=== PATIENT | male | born 1935 | race Hispanic/Latino ===

== ENCOUNTER → 2019-05-12 | Outpatient (CLI) | payer OTHER | END | disposition home or self-care (01) | LOC: SHCH 12:56 | PROVIDERS: ATTEND Internal Medicine Cardiovascular Disease | DX: I65.23 Occlusion and stenosis of bilateral carotid arteries (principal) | CPT/HCPCS: 93880 ==

== ENCOUNTER → 2020-11-12 | Outpatient (CLI) | payer OTHER | END | disposition home or self-care (01) | LOC: SHCH 10:29 | PROVIDERS: ATTEND Internal Medicine Cardiovascular Disease | DX: I10 Essential (primary) hypertension (principal) | CPT/HCPCS: 93306 ==

== ENCOUNTER → 2020-11-20 | Outpatient (CLI) | payer OTHER ==
[~2020-11-20] VITALS: Ht 165.1 cm; Wt 63.0 kg
[~2020-11-20] MED LIST: REGADENOSON 0.4 MG/5 ML PF SYG IVP SCH
== END | disposition home or self-care (01) ==
LOC: SHCH 08:08
PROVIDERS: ATTEND Internal Medicine Cardiovascular Disease
DX: I10 Essential (primary) hypertension (principal); R06.09 Other forms of dyspnea; I65.22 Occlusion and stenosis of left carotid artery
CPT/HCPCS: 78452; 93017; 96374; A9500 ×2; J2785

== ENCOUNTER 2020-12-25 08:56 | Day surgery (SDC) | payer OTHER ==
[2020-12-21 12:19] LABS: BASOPHILS % (AUTO) 0.4 % (0.0-5.0); EOSINOPHILS % (AUTO) 2.2 % (0.0-8.0); HEMATOCRIT 46.3 % (42-54); LYMPHOCYTES % (AUTO) 28.7 % (21.0-51.0); MEAN CORPUSCULAR HEMOGLOBIN 30.1 pg (27.0-33.0); MEAN CORPUSCULAR VOLUME 94.3 fL (79-99); MONOCYTES % (AUTO) 9.5 % (3.0-13.0); NEUTROPHILS % (AUTO) 58.7 % (40.0-77.0); PLATELET COUNT (AUTO) 205 K/uL (130-400); RED BLOOD CELL COUNT(AUTO) 4.91 MIL/uL (4.50-6.20); RED CELL DISTRIBUTION WIDTH 13.9 % (11.0-15.5); WHITE BLOOD COUNT (AUTO) 9.4 K/uL (4.8-10.8)
[2020-12-21 12:20] LABS: APPEARANCE,URINE Clear (CLEAR); BILIRUBIN,URINE Negative (NEGATIVE); COLOR,URINE Yellow (YELLOW); GLUCOSE, URINE (UA) Negative (NEGATIVE); KETONES,URINE Negative (NEGATIVE); LEUKOCYTE ESTERASE ,URINE Negative (NEGATIVE); NITRATE,URINE Negative (NEGATIVE); OCCULT BLOOD,URINE Negative (NEGATIVE); PH,URINE 6.5 (5.0-8.0); PROTEIN,URINE Negative (NEGATIVE); UROBILINOGEN,URINE 0.2 mg/dL (0.2-1.0)
[2020-12-21 12:31] LABS: PROTHROMBIN TIME 10.9 SEC (9.6-11.6)
[2020-12-21 12:32] LABS: CREATININE 1.6 mg/dL (0.5-1.5); POTASSIUM 4.7 mmol/L (3.5-5.1)
[2020-12-21 12:33] LABS: PARTIAL THROMBOPLASTIN TIME 28.7 SEC (26.3-35.5)
[2020-12-22 09:29] VITALS: BP 173/74
[2020-12-25] VITALS (10 sets, daily range): BP systolic 102–159; BP diastolic 44–71
[~2020-12-25] VITALS: Ht 162.6 cm; Wt 65.8 kg
[~2020-12-25 08:56] MED LIST changes: +0.9% NACL 500ML IV.SOLN 500 ML IV SCH; +AEC81 PO; +AMLO-258 PO; +ATOR10TA69 PO; +CLOP75TA32 PO; +LOSA100T58 PO; -REGADENOSON 0.4 MG/5 ML PF SYG IVP SCH
[2020-12-25] MEDS ORDERED: 0.9%NACL 1000ML 1,000 ML IV ONE (10:12)
[2020-12-25] MEDS ORDERED: MEPERIDINE-PF 25 MG/ML SYG ONE (12:14)
[2020-12-25] MEDS ORDERED: SODIUM BICARB 50MEQ 50ML VIAL 50 ML ONE (12:14)
[2020-12-25] MEDS ORDERED: IODIXANOL 320 MG/ML 100 ML VIAL ONE (12:14)
[2020-12-25] MEDS ORDERED: MIDAZOLAM HCL 1 MG/ML 2ML VIAL ONE (12:14)
[2020-12-25] MEDS ORDERED: LIDOCAINE HCL 400MG/20ML VIAL ONE (12:14)
[2020-12-25] MEDS ORDERED: NITROGLYCERIN 2 MG VIAL IV ONE (12:38)
[2020-12-25] MEDS ORDERED: HYDRALAZINE 20MG/ML VIAL ONE (12:49)
[2020-12-25] MEDS ORDERED: LABETALOL 20MG SYG IV ONE (13:05)
[2020-12-25] MEDS ORDERED: 0.9%NACL 1000ML 1,000 ML IV SCH (14:00)
== END 2020-12-25 19:00 | disposition home or self-care (01) ==
LOC: DAH 08:56
PROVIDERS: ATTEND Internal Medicine Cardiovascular Disease
DX: I65.21 Occlusion and stenosis of right carotid artery (principal); Q25.49 Other congenital malformations of aorta; I77.1 Stricture of artery; I10 Essential (primary) hypertension; E78.5 Hyperlipidemia, unspecified; I73.9 Peripheral vascular disease, unspecified; I25.10 Atherosclerotic heart disease of native coronary artery without angina pectoris; Z79.82 Long term (current) use of aspirin; Z79.01 Long term (current) use of anticoagulants; Z79.899 Other long term (current) drug therapy; Z98.890 Other specified postprocedural states; Z87.891 Personal history of nicotine dependence; Z86.73 Personal history of transient ischemic attack (TIA), and cerebral infarction without residual deficits; Z95.5 Presence of coronary angioplasty implant and graft
CPT/HCPCS: 36223; 36225; 36415; 71045; 80048; 81003; 85025; 85610; 85730; 93005; A4215; A4216; A4221; A4222; A4223 ×3; A4606; A4663; A6260; C1760; C1769; C1894; J0360; J1644; J3490 ×3; J7030; Q9967; 75710; 96360; 96361; J2175; J2250

== ENCOUNTER → 2022-10-07 | Outpatient (CLI) | payer OTHER ==
[~2022-10-07] MED LIST changes: -0.9% NACL 500ML IV.SOLN 500 ML IV SCH; -LOSA100T58 PO; +LOSA100T59 PO
[2022-10-07 13:02] LABS: ALBUMIN 3.2 g/dL (3.5-5.0); CREATININE 1.3 mg/dL (0.5-1.5); POTASSIUM 3.8 mmol/L (3.5-5.1); TOTAL PROTEIN, SERUM 7.7 g/dL (6.0-8.3)
== END | disposition home or self-care (01) ==
LOC: LAB 10:08
PROVIDERS: ATTEND Internal Medicine Cardiovascular Disease
DX: I10 Essential (primary) hypertension (principal)
CPT/HCPCS: 36415; 80053

== ENCOUNTER → 2022-10-11 | Outpatient (CLI) | payer OTHER ==
[~2022-10-11] MED LIST changes: +IOHEXOL 350 MG/ML 100ML INFUS..BTL IV ONE
== END | disposition home or self-care (01) ==
LOC: RAH 07:48
PROVIDERS: ATTEND Internal Medicine Cardiovascular Disease
DX: I65.23 Occlusion and stenosis of bilateral carotid arteries (principal)
CPT/HCPCS: 70498; Q9967